=== PATIENT | male | born 1945 | race Caucasian/White ===

== ENCOUNTER 2019-05-08 08:29 | Outpatient (CLI) | payer MEDICARE, BC ==
--- NOTE | 2019-05-08 10:09 | MRI ---
MR the lumbar spine with and without contrast: 05/08/2019 History: Low back pain, history of prior synovial cyst removal COMPARISON: 07/03/2012 TECHNIQUE: Multiplanar multisequence MR images were obtained of lumbar spine with and without IV cont rast FINDINGS: On the basis of 5 lumbar type vertebral bodies, conus medullaris terminates at [id number] level. Sagittal STIR imaging demonstrates no focal area of osseous marrow edema. There is L4-5 anterolisthes is measuring 4 mm. T12-L1:Disc space narrowing and disc desiccation with anterior osteophyte formation and mild bilatera l facet hypertrophy. No significant central canal or neural foraminal stenosis. L1-2:Mild anterior osteophyte formation. Small foraminal disc protrusion on the right. Mild bilateral facet hypertrophy. No significant central canal or neural foraminal stenosis. L2-3:There is disc space narrowing with disc desiccation and mild disc bulge. Moderate bilateral face t hypertrophy. Small foraminal disc protrusion on the right. No significant central canal or neural foraminal stenosis. L3-4:Moderate bilateral facet hypertrophy and hypertrophy of the ligamentum flavum. There is disc spa ce narrowing with disc desiccation and mild disc bulge. Small foraminal disc protrusion on the left. Mild central canal stenosis. No significant neural foraminal stenosis. L4-5:Prominent bilateral facet hypertrophy and hypertrophy of the ligamentum flavum. Disc space narro wing disc desiccation and mild disc bulge and moderate central canal stenosis. Mild right neural foraminal stenosis. L5-S1:Mild bilateral facet hypertrophy. Disc space narrowing with disc desiccation and mild disc bulg e. Moderate right and severe left neural foraminal stenosis. Mild central canal stenosis. The anterolisthesis noted at L4-5 is new when compared to the prior exam. Bilateral neural foraminal stenosis has worsened bilaterally at the L5-S1 level when compared to the prior exam and central canal stenosis at L4-5 has worsened since the prior exam. Image retroperitoneal structures demonstrateno acute findings. The postcontrast imaging demonstrates no significant abnormal enhancement involving the nerve roots o f the cauda equina, contents of the thecal sac, imaged osseous structures, or imaged intervertebral discs. Mild degenerative enhancement of the bilateral L4-5 facet joints and mild enhancement of the p osterior right para midline paraspinal musculature at L5, likely on the basis of scar. IMPRESSION: Lumbar spine postoperative and degenerative changes. There has been interval progression of degenerat ramiro change within the lower lumbar spine as described above.
--- NOTE | 2019-05-08 11:04 | RAD ---
LUMBAR SPINE 4 VIEWS INCLUDING STANDING AND FLEXION AND EXTENSION LATERAL VIEWS: HISTORY: Low back pain and left hip pain. COMPARISON: Prior MRI examination 07/03/2012. FINDINGS: Evidence for laminectomy changes at L4-L5 region. Generalized disk-osteophytosis and facet arthrosis . Grade I anterolisthesis of L4 and L5 with worsening with flexion rather than extension, evidence f or instability or abnormal translation. IMPRESSION: Abnormal translation, worsening with flexion relative to extension with anterolisthesis up to 0.9 cm at the L4-L5 level. Status post operative changes at this level. Generalized spondylosis. POS: MARIA ELENA
[2019-05-08] MEDS ORDERED: Magnevist 469MG/ML 20 ML VIAL ONE (14:53)
== END 2019-05-08 08:30 | disposition home or self-care (01) ==
LOC: TBSIIMAG 08:29
PROVIDERS: ATTEND Physician Assistant Surgical
DX: M54.5 Low back pain (principal); M43.16 Spondylolisthesis, lumbar region; M47.816 Spondylosis without myelopathy or radiculopathy, lumbar region; Z98.890 Other specified postprocedural states
CPT/HCPCS: 72110; 72158; 82565; A9579

== ENCOUNTER 2022-03-17 09:37 | Outpatient (CLI) | payer MEDICARE, BC | END 2022-03-17 09:38 | disposition home or self-care (01) | LOC: SCSRAD 09:37 | PROVIDERS: ATTEND Family Medicine | DX: M43.16 Spondylolisthesis, lumbar region (principal); M47.816 Spondylosis without myelopathy or radiculopathy, lumbar region | CPT/HCPCS: 72110 ==

== ENCOUNTER 2022-06-23 09:30 | Outpatient (CLI) | payer MEDICARE, BC | END 2022-06-23 09:31 | disposition home or self-care (01) | LOC: SCSCT 09:30 | PROVIDERS: ATTEND Surgery | DX: M47.26 Other spondylosis with radiculopathy, lumbar region (principal); M48.061 Spinal stenosis, lumbar region without neurogenic claudication | CPT/HCPCS: 72131; 72148 ==